=== PATIENT | female | born 1965 | race African-American/Black ===

== ENCOUNTER 2022-09-25 10:57 | Emergency (ER) | payer OTHER ==
[~2022-09-25] VITALS: Ht 157.5 cm; Wt 78.9 kg
[2022-09-25 11:26] LABS: HEMATOCRIT. 39.3 % (36.0-48.0); HEMOGLOBIN. 13.6 g/dL (12.0-16.0); LYMPHOCYTES % 42.5 % (20.0-50.0); MEAN CORPUSCULAR HEMOGLOBIN 28.4 pg (28.0-32.0); MEAN CORPUSCULAR VOLUME 82.3 fL (81.0-99.0); MEAN PLATELET VOLUME 8.2 fl (7.4-10.4); MONOCYTES % 7.8 % (2.0-8.0); NEUTROPHILS % 44.7 % (40.0-76.0); PLATELET 266 x1000/uL (130-400); RED BLOOD CELL COUNT 4.78 mill/uL (4.2-5.4); RED CELL DISTRIBUTION WIDTH 13.9 % (11.6-14.6)
[2022-09-25 11:35] LABS: CHLORIDE 107 mEq/L (98-107)
[2022-09-25 11:36] LABS: PROTHROMBIN TIME 10.3 sec (9.6-11.0)
[2022-09-25 11:51] LABS: CLARITY URINE CLEAR (CLEAR); COLOR URINE YELLOW (YELLOW); KETONES URINE NEGATIVE (NEGATIVE); LEUKOCYTE ESTERASE URINE NEGATIVE (NEGATIVE); NITRITE URINE NEGATIVE (NEGATIVE); OCCULT BLOOD URINE NEGATIVE (NEGATIVE); PH URINE 6.5 (4.5-8.0); PROTEIN URINE 2+ (NEGATIVE); SPECIFIC GRAVITY URINE 1.006 (1.005-1.030); UROBILINOGEN URINE 0.2 E.U./dL (0.2-1.0)
[2022-09-25 12:48] VITALS: BP 145/79
== END 2022-09-25 12:49 | disposition home or self-care (01) ==
LOC: ER 10:57
DX: R06.00 Dyspnea, unspecified (principal); R06.02 Shortness of breath; E78.00 Pure hypercholesterolemia, unspecified; I10 Essential (primary) hypertension
CPT/HCPCS: 36415; 71045; 80053; 81003; 83880; 84484; 85025; 93005; 99285